=== PATIENT | male | born 1965 | race Caucasian/White ===

== ENCOUNTER 2021-06-29 11:09 | Emergency (ER) | payer SELFPAY ==
[~2021-06-29] VITALS: Ht 172.7 cm; Wt 88.0 kg
[2021-06-29] MEDS ORDERED: ONDANSETRON PF 4 MG/2 ML VIAL. IVP ONE (11:45)
[2021-06-29] MEDS ORDERED: IV NORMAL SALINE 1000ML BAG 1,000 ML IV SCH (11:45)
[2021-06-29] MEDS ORDERED: DEXAMETHASONE SOD PHOS 20 MG/5 ML VIAL. IV ONE (11:45)
--- NOTE | 2021-06-29 11:56 | PHYS DOC ---
Past Medical History Additional Past Medical Histor: MENINGITIS Past Surgical History: Other Additional Past Surgical Histo: KNEE AND HIP SX General Adult EDM: Chief Complaint: FLU SYMPTOM HPI: HPI: Patient is a 55 year old male who presents with 3 days of shortness of breath, nausea, fatigue, and body aches, intermittent diarrhea and abdominal pain. Patient states he last took Tylenol yesterday. He is not vaccinated for Covid. He has a history of smoking, drinks a sixpack a day, meningitis, knee and hip surgeries. Patient states he does not follow with a primary care doctor. He denies chest pain, vomiting, blood in his stool, fever, dizziness, headache, focal weakness, numbness or tingling, vision change. Review of Systems: Review of Systems: Constitutional: Denies fever or chills. [] Eyes: Denies change in visual acuity. [] HENT: Denies nasal congestion or sore throat. [] Respiratory: + cough or +shortness of breath. [] Cardiovascular: Denies chest pain or edema. [] GI: + abdominal pain, +nausea, denies vomiting, bloody stools or +diarrhea. + Lack of appetite [] : Denies dysuria. [] Musculoskeletal: Denies back pain or joint pain. + Body aches , + generalized fatigue [] Integument: Denies rash. [] Neurologic: Denies headache, focal weakness or sensory changes. [] Endocrine: Denies polyuria or polydipsia. [] Lymphatic: Denies swollen glands. [] Psychiatric: Denies depression or anxiety. [] Heart Score: C/O Chest Pain: No Risk Factors: Risk Factors: DM, Current or recent (<one month) smoker, HTN, HLP, family history of CAD, obesity. Risk Scores: Score 0 - 3: 2.5% MACE over next 6 weeks - Discharge Home Score 4 - 6: 20.3% MACE over next 6 weeks - Admit for Clinical Observation Score 7 - 10: 72.7% MACE over next 6 weeks - Early Invasive Strategies Current Medications: Current Medications Medications (Trade) Dose Ordered Sig/Lauren Start Time Stop Time Status Last Admin Dose Admin Dexamethasone Sodium Phosphate (Decadron) 10 mg 1X ONCE 06/29/21 11:45 06/29/21 11:46 DC Ondansetron HCl (Zofran) 4 mg 1X ONCE 06/29/21 11:45 06/29/21 11:46 DC Sodium Chloride 1,000 ml @ 1,000 mls/hr Q1H 06/29/21 11:45 06/29/21 12:44 Allergies: Allergies: Allergies Coded Allergies Type Severity Reaction Last Updated Verified No Known Drug Allergies 06/29/21 No Physical Exam: PE: Constitutional: Well developed, well nourished, no acute distress, non-toxic appearance. [] HENT: Normocephalic, atraumatic, bilateral external ears normal, oropharynx moist, no oral exudates, nose normal. [] Eyes: PERRLA, EOMI, conjunctiva normal, no discharge. [] Neck: Normal range of motion, no tenderness, supple, no stridor. [] Cardiovascular:Heart rate regular rhythm, no murmur [] Lungs & Thorax: Bilateral upper breath sounds clear and lower diminished to auscultation [] Abdomen: Bowel sounds normal, soft, epigastric and left upper tenderness, no masses, no pulsatile masses. [] Skin: Warm, dry, no erythema, no rash. [] Back: No tenderness, no CVA tenderness. [] Extremities: No tenderness, no cyanosis, no clubbing, ROM intact, no edema. [] Neurologic: Alert and oriented X 3, normal motor function, normal sensory function, no focal deficits noted. [] Psychologic: Affect normal, judgement normal, mood normal. [] Current Patient Data: Vital Signs: Vital Signs Date Time Temp Pulse Resp B/P (MAP) Pulse Ox O2 Delivery O2 Flow Rate FiO2 06/29/21 11:27 97.9 95 24 155/100 (118 98 97.9 EKG: EK and read by Dr. Quinteros as a sinus rhythm and no STEMI Radiology/Procedures: Radiology/Procedures: [] Impression: [facility] [address] [place], [place] [id number] IMAGING REPORT Signed PATIENT: HARDY BURK LACCOUNT: [id number] : 1965 LOCATION: ER AGE: 55 SEX: M EXAM STATUS: PRE ER ORD. PHYSICIAN: COLETTE IYER APRN REASON: SHORTNESS OF BREATH, COUGH PROCEDURE: PORTABLE CHEST 1V EXAM: Chest, single view. HISTORY: Shortness of breath. Cough. COMPARISON: None. FINDINGS: A frontal view of the chest is obtained. There is no infiltrate, p leural effusion or pneumothorax. The heart is normal in size. IMPRESSION: No acute pulmonary finding. Electronically signed by: Amaris Aviles MD (06/29/2021 11:56 AM) [id number] DICTATED and SIGNED BY: AMARIS AVILES MD DATE: 06/29/21 [id number] [facility] [address] [place] [address] IMAGING REPORT Signed PATIENT: HARDY BURK LACCOUNT: [id number] : 1965 LOCATION: ER AGE: 55 SEX: M EXAM STATUS: REG ER ORD. PHYSICIAN: COLETTE IYER APRN REASON: ABDOMINAL PAIN, NAUSEA, DIARRHEA, TENDER, ALCOHOLISM PROCEDURE: CT ABD PELV W/ IV CONTRST ONLY EXAM: CT Abdomen and Pelvis with IV contrast CLINICAL HISTORY: Reason: ABDOMINAL PAIN, NAUSEA, DIARRHEA, TENDER, ALCOHOLISM / Spl. Instructions: OMNI 300 INJ. 75 MLS / History: . COMPARISON: none TECHNIQUE: Helical CT of the abdomen and pelvis was performed following the admi nistration of intravenous contrast. Axial, coronal and sagittal reformatted images were generated. PQRS compliance statement - One or more of the following individualized dose reduction techniques were utilized for this study: 1. Automated exposure control 2. Adjustment of the mA and/or kV according to patient size 3. Use of iterative reconstruction technique FINDINGS: Lower Chest: Left lower lobe airspace opacities likely consolidative process such as pneumonia. Abdomen and Pelvis: No focal liver lesion. Spleen, adrenal glands and pancreas are unremarkable. Gallbladder is normal. No biliary ductal dilatation. 9 mm interpolar hypodense left renal lesion is too small to accurately characterize but likely cystic. Symmetric nephrograms. No hydronephrosis. No hydroureter. Appendix is normal. Moderate colonic stool content is seen. No small or large bowel dilatation. No bowel obstruction. Aortobiiliac atherosclerotic calcifications. No abdominal or pelvic ascites. No abdominal or pelvic lymphadenopathy. Bones: Severe left hip joint osteoarthritis. Changes of prior left hip surgery are seen with mild irregularity of the left femoral head. IMPRESSION: Left lower lobe airspace opacities may represent consolidative process such as pneumonia. Aspiration could have this appearance as well. No bowel obstruction. Moderate colonic stool content. Electronically signed by: Juan Mayo MD (06/29/2021 1:18 PM) [id number] DICTATED and SIGNED BY: JUAN MAYO MD DATE: 06/29/21 [id number] Course & Med Decision Making: Course & Med Decision Making Pertinent Labs and Imaging studies reviewed. (See chart for details) COVID-19 CRITERIA: The patient was evaluated during the global COVID-19 pandemic, and that diagnosis was suspected/considered upon their initial presentation. Their evaluation, treatment and testing was consistent with current guidelines for patients who present with complaints or symptoms that may be related to COVID-19. See HPI. Alert and oriented x4. Ambulatory steady gait. Speaks in full clear sentences. Abdomen is soft but tender to epigastric and left upper abdomen. Cap refill less than 2 seconds. Afebrile at this time. Lungs are clear in upper lobes and diminished in lower lobes. No extremity edema. I discussed this patient and care plan with Dr Quinteros. [] Priti Disclaimer: Priti Disclaimer: This electronic medical record was generated, in whole or in part, using a voice recognition dictation system. COVID-19 Patient Risks: Age 65 or older: No Sign of co-morbidity: Yes Exp to person + for COVID: No Exp to PUI: No Travel from affected area: No Lower respiratory symptoms: Yes Fever: No Other: Yes (NAUSEA, FATIGUE, LACK OF APPETITE) PPE Use: Full PPE with N95 mask or PAPR: Yes Departure Departure Impression: Primary Impression: Pneumonia Qualified Codes: J18.9 - Pneumonia, unspecified organism Additional Impression: Alcohol abuse Disposition: HOME / SELF CARE / HOMELESS Condition: STABLE Referrals: BG MCKEE MD Patient Instructions: Alcohol Problems, Pneumonia, Adult Additional Instructions: Follow-up with a primary care provider soon as possible. 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 Stop smoking and drinking alcohol if at all possible. Take all medications as prescribed. Return for worsening symptoms such as chest pain, increased shortness of air, vomiting. Scripts Methylprednisolone (MEDROL) 4 Mg Tab.ds.pk 1 PKG PO UD, #1 PKG Prov: COLETTE IYER APRN 06/29/21 Albuterol Sulfate (PROAIR HFA INHALER) 8.5 Gm Hfa.aer.ad 2 PUFF IH PRN Q4-6HRS PRN for wheezing for 21 Days, #1 INHALER 0 Refills Prov: COLETTE IYER APRN 06/29/21 Doxycycline Hyclate (DOXYCYCLINE HYCLATE) 100 Mg Capsule 1 CAP PO BID, #14 CAP Prov: COLETTE IYER APRN 06/29/21 Amoxicillin/Potassium Clav (AUGMENTIN 875-125 TABLET) 1 Each Tablet 1 TAB PO BID for 10 Days, #20 TAB 0 Refills Prov: COLETTE IYER APRN 06/29/21 COLETTE IYER APRN Jun 29, 2021 11:55
--- NOTE | 2021-06-29 11:59 | RAD ---
EXAM: Chest, single view. HISTORY: Shortness of breath. Cough. COMPARISON: None. FINDINGS: A frontal view of the chest is obtained. There is no infiltrate, pleural effusion or pneumo thorax. The heart is normal in size. IMPRESSION: No acute pulmonary finding. Electronically signed by: Amaris Ramirez MD (06/29/2021 11:56 AM) [id number]
[2021-06-29] MEDS ORDERED: PANTOPRAZOLE IV PUSH 40 MG VIAL. IVP ONE (12:00)
[2021-06-29 12:18] LABS: BASO % 0 % (0-3); EOS # 0.1 x10^3/uL (0.0-0.7); EOS % 2 % (0-3); HEMATOCRIT 44.8 % (39.0-53.0); HEMOGLOBIN 15.6 g/dL (13.0-17.5); LYMPH % 16 % (24-48); MEAN CORPUSCULAR HEMOGLOBIN 33 pg (25-35); MEAN CORPUSCULAR HGB CONC 35 g/dL (31-37); MEAN CORPUSCULAR VOLUME 94 fL (79-100); MONO # 0.6 x10^3/uL (0.0-1.1); MONO % 10 % (0-9); NEUT # 4.6 x10^3/uL (1.8-7.7); NEUT % 72 % (31-73); PLATELET COUNT 348 x10^3/uL (140-400); RED BLOOD COUNT 4.78 x10^6/uL (4.30-5.70); RED CELL DISTRIBUTION WIDTH 14.1 % (11.5-14.5); WHITE BLOOD COUNT 6.4 x10^3/uL (4.0-11.0)
[2021-06-29 12:29] LABS: CALCIUM 8.7 mg/dL (8.5-10.1); CREATININE 1.2 mg/dL (0.7-1.3); GFR 62.6; POTASSIUM 3.8 mmol/L (3.5-5.1)
[2021-06-29 12:35] LABS: ALBUMIN 2.8 g/dL (3.4-5.0); ALBUMIN/GLOBULIN RATIO 0.6 (1.0-1.7); MAGNESIUM 2.7 mg/dL (1.8-2.4); TOTAL BILIRUBIN 0.4 mg/dL (0.2-1.0); TOTAL PROTEIN 7.2 g/dL (6.4-8.2)
--- NOTE | 2021-06-29 12:37 | EKG ---
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
[2021-06-29] MEDS ORDERED: IOHEXOL 300 MG/ML 100ML VIAL. IV ONE (12:45)
[2021-06-29] MEDS ORDERED: CONTRAST GIVEN. MC PRN (12:45)
--- NOTE | 2021-06-29 13:20 | RAD ---
EXAM: CT Abdomen and Pelvis with IV contrast CLINICAL HISTORY: Reason: ABDOMINAL PAIN, NAUSEA, DIARRHEA, TENDER, ALCOHOLISM / Spl. Instructions: O MNI 300 INJ. 75 MLS / History: . COMPARISON: none TECHNIQUE: Helical CT of the abdomen and pelvis was performed following the administration of intrave nous contrast. Axial, coronal and sagittal reformatted images were generated. PQRS compliance statement - One or more of the following individualized dose reduction techniques wer e utilized for this study: 1. Automated exposure control 2. Adjustment of the mA and/or kV according to patient size 3. Use of iterative reconstruction technique FINDINGS: Lower Chest: Left lower lobe airspace opacities likely consolidative process such as pneumonia. Abdomen and Pelvis: No focal liver lesion. Spleen, adrenal glands and pancreas are unremarkable. Gallbladder is normal. N o biliary ductal dilatation. 9 mm interpolar hypodense left renal lesion is too small to accurately characterize but likely cystic . Symmetric nephrograms. No hydronephrosis. No hydroureter. Appendix is normal. Moderate colonic stool content is seen. No small or large bowel dilatation. No lindsey wel obstruction. Aortobiiliac atherosclerotic calcifications. No abdominal or pelvic ascites. No abdominal or pelvic lymphadenopathy. Bones: Severe left hip joint osteoarthritis. Changes of prior left hip surgery are seen with mild irregulari ty of the left femoral head. IMPRESSION: Left lower lobe airspace opacities may represent consolidative process such as pneumonia. Aspiration could have this appearance as well. No bowel obstruction. Moderate colonic stool content. Electronically signed by: Juan Patterson MD (06/29/2021 1:18 PM) [id number]
[2021-06-29] MEDS ORDERED: AZITHRMYCN 500MG IVPB FOR OMNI 250 ML IV ONE (13:30)
[2021-06-29] MEDS ORDERED: cefTRIAXone IV Push 1 GM VIAL. IVP ONE (13:30)
[2021-06-29] MEDS ORDERED: METH4TAB2 PO ×2 (14:58→15:38)
[2021-06-29] MEDS ORDERED: AMOX1TAB61 PO ×2 (14:58→15:38)
[2021-06-29] MEDS ORDERED: ALBU2.5V8 IH ×2 (14:58→15:38)
[2021-06-29] MEDS ORDERED: DOXY100C3 PO ×2 (14:58→15:38)
[2021-06-29 15:20] VITALS: BP 129/81
--- NOTE | 2021-06-30 11:13 | NUR ---
IP: Patient notified of negative COVID19 test result. Requested copy of test result for his employer. Home address verified and will mail copy of test result.
== END 2021-06-29 15:50 | disposition home or self-care (01) ==
LOC: ER 11:09
DX: J18.9 Pneumonia, unspecified organism (principal); Z20.822 Contact with and (suspected) exposure to COVID-19; F10.10 Alcohol abuse, uncomplicated; Y90.0 Blood alcohol level of less than 20 mg/100 ml
CPT/HCPCS: 36415; 71045; 74177; 80053; 83605; 83690; 83735; 83880; 84484; 85025; 87040; 87426; 93005; 96361; 96365; 96375; 99285; C9113; G0480; J0456; J0696; J1100; J2405; J7030; Q9967; U0003; U0005